=== PATIENT | female | born 2000 | race Caucasian/White ===

== ENCOUNTER 2025-02-12 18:20 | Emergency (ER) | payer MEDICAID ==
[~2025-02-12] VITALS: Ht 160 cm; Wt 63.5 kg
[2025-02-12 18:47] VITALS: BP 113/65; PULSE 90; RESP 15; TEMP 97.7; O2SAT 99
[2025-02-12 19:22] LABS: MEAN PLATELET VOLUME 8.8 FL (7.4-10.4); RED CELL DISTRIBUTION WIDTH 12.3 % (11.5-14.5)
[2025-02-12 19:27] LABS: CREATININE 0.78 MG/DL (0.40-0.90); TOTAL CARBON DIOXIDE 27.1 MMOL/L (24-32); eCRCL 91 ML/MIN; eGFR 90 ML/MIN
[2025-02-12 19:50] LABS: BANDS% (MANUAL) 1.0 % (0-10); EOSINOPHILS % (MANUAL) 4.0 % (0-6); LYMPHOCYTES % (MANUAL) 29.0 % (21-51); METAMYLEOCYTES% (MANUAL) 1.0 % (0-0); MONOCYTES % (MANUAL) 6.0 % (2-12); NEUTROPHILS % (MANUAL) 59.0 % (42-75); PLATELET ESTIMATE NORMAL
[2025-02-12 19:51] LABS: LARGE PLATELETS FEW
[2025-02-12 20:31] LABS: URINE HCG NEGATIVE (NEG)
[2025-02-12 20:34] LABS: UA COLLECTION TYPE NON-SPECIFIED
[2025-02-12 20:40] LABS: MUCUS STRANDS FEW /LPF (Neg); SQUAMOUS EPITHELIAL CELL,UR FEW /LPF (FEW)
== END 2025-02-12 21:22 | disposition left against medical advice (07) ==
LOC: ER 18:22
DX: R35.0 Frequency of micturition (principal); Z53.21 Procedure and treatment not carried out due to patient leaving prior to being seen by health care provider
CPT/HCPCS: 80053; 81001; 81025; 83690; 85007; 85025; 87077; 87088; 87186

== ENCOUNTER 2025-04-01 18:31 | Emergency (ER) | payer MEDICAID ==
[~2025-04-01] VITALS: Ht 160 cm; Wt 70.0 kg
[2025-04-01 18:37] VITALS: BP 96/63; PULSE 86; RESP 18; O2SAT 98
[2025-04-01] MEDS ORDERED: LAMO200T10 PO ×2 (19:46→20:38)
[2025-04-01] MEDS ORDERED: CITA20TA17 PO ×2 (19:46→20:38)
[2025-04-01] MEDS ORDERED: PANT40SU2 PO ×2 (19:46→20:38)
--- NOTE | 2025-04-01 20:38 | Physician Documentation ---
HPI ~ General Chief Complaint: Medication Refill Stated Complaint: MEDICATION REFILL Time Seen by MD: 20:09 Source: patient Mode of Arrival: POV Exam Limitations: no limitations History of Present Illness HPI Comments She was past medical history significant for anxiety, depression, bipolar and GERD presents for refills on her medications. She takes citalopram, lamotrigine, and protonix. Has missed one dose. Medication Reconciliation Allergies: Coded Allergies: No Known Allergies (Unverified , 02/12/25) Scheduled Citalopram Hydrobromide (Citalopram HBr), 1 TAB PO DAILY Lamotrigine (Lamotrigine), 1 TAB PO DAILY Pantoprazole Sodium (Protonix), 40 MG PO DAILY Review of Systems ROS Review of systems negative except documented in HPI Physical Exam Physical Exam Vital Signs: RN Vital Signs have been reviewed: Yes, Temperature: 98.4, Heart Rate: 86, Respiratory Rate: 18, BP: 96/63, Pulse Oximetry: 98, Weight: 70.000 Oxygen Flow Rate: 0 Pulse Oximetry Reflects: adequate oxygenation Physical Exam General: Awake, alert, oriented. No apparent distress Respiratory: Lungs are clear to auscultation bilaterally. No respiratory distress. Chest: Normal shape and size. No accessory muscle use. Cardiovascular: Regular rate and rhythm. S1-S2. No murmur, gallop, rub. Neurologic: Alert and oriented x4. Nonfocal. Moving all extremities. Speech clear. Psychiatric: Normal mood and affect. Skin: Normal color. Warm and dry. Progress Results/Orders Results/Orders Vital Signs 04/01/25 04/01/25 18:37 20:41 Temp 98.4 98.4 Pulse 86 Resp 18 B/P (MAP) 96/63 Pulse Ox 98 O2 Flow Rate 0 Medical Decision Making Findings Patient states she has ran out of her medications. She denies any other acute medical condition. She has plans to follow up with her primary care provider but was unable to get an appointment. Therefore, presented to the emergency department. She is well-appearing. Vital signs stable. Refills were provided and she is being discharged home in stable condition. Departure Time of Disposition: 20:35 Disposition: 01 HOME / SELF CARE / HOMELESS Impression: Primary Impression: Depression Qualified Codes: F32.A - Depression, unspecified Additional Impressions: Anxiety General medical exam Condition: Stable Discharge Instructions: Medicine Refill at the Emergency Department Additional Instructions: Make sure that you follow up with your primary care provider for additional refills. I have given you 14 day supply. Referrals: NO PRIMARY CARE PROVIDER (PCP) Prescriptions Pantoprazole Sodium (Pantoprazole Sodium) 40 Mg Tablet.dr 1 TAB PO DAILY for 14 Days, #14 TAB 0 Refills Prov: MARIANN BEAVERS NP 04/02/25 Lamotrigine* (Lamictal*) 200 Mg Tablet 1 TAB PO DAILY for 14 Days, #14 TAB Prov: MARIANN BEAVERS NP 04/02/25 Citalopram Hydrobromide* (Celexa*) 20 Mg Tablet 1 TAB PO DAILY for 14 Days, #14 TAB Prov: MARIANN BEAVERS NP 04/02/25 Education Educated: Patient Educated regarding: diagnosis, treatment, need for follow up Signature Scribe Signature: No scribe Attestation: The note accurately reflects work and decisions made by me.Mariann Beavers - VILMA 04/01/25 23:36 This note was created with the assistance of voice recognition software whereby errors in grammar, syntax, and/or spelling may have occurred despite active proofreading efforts by the author. Please do not hesitate to contact the provider for clarification or for questions regarding the content of this document. MARIANN BEAVERS NP Apr 01, 2025 20:38
[2025-04-01 20:41] VITALS: TEMP 98.4
[2025-04-02] MEDS ORDERED: CITA-178 PO (16:07)
[2025-04-02] MEDS ORDERED: LAMO200T2 PO (16:07)
[2025-04-02] MEDS ORDERED: PANT40TA54 PO (16:07)
== END 2025-04-01 20:46 | disposition home or self-care (01) ==
LOC: ER 18:32
DX: F32.A Depression, unspecified (principal); F41.9 Anxiety disorder, unspecified; Z76.0 Encounter for issue of repeat prescription; K21.9 Gastro-esophageal reflux disease without esophagitis; Z79.899 Other long term (current) drug therapy
CPT/HCPCS: 99281